=== PATIENT | male | born 1980 | race Caucasian/White ===

== ENCOUNTER 2017-12-19 10:18 | Emergency (ER) | payer OTHER ==
[~2017-12-19] VITALS: Ht 182.9 cm; Wt 126.7 kg
[~2017-12-19 10:18] MED LIST: ANAPROX DS550 M1 PO; AUGMENTIN875 MG PO; CORTISPORIN-TC10 M1 RIGHT EAR; FIORICET 50-301 EACH PO; FLEXERIL10 MG PO; FLONASE16 G1 BOTH NARES; HYDROCODON-ACE1 EAC7 PO; INDOCIN25 MG PO; PROAIR HFA8.5 GM IH; ROBITUSSIN AC,T10 ML PO; TESSALON PERLE100 MG PO; TYLENOL REGULA325 MG PO
[2017-12-19 14:33] VITALS: BP 121/83
== END 2017-12-19 14:35 | disposition home or self-care (01) ==
LOC: EME 10:18
DX: S06.0X0A Concussion without loss of consciousness, initial encounter (principal); M54.2 Cervicalgia; W22.8XXA Striking against or struck by other objects, initial encounter; Y99.0 Civilian activity done for income or pay
CPT/HCPCS: 70450; 99281; 99284